=== PATIENT | female | born 1960 | race African-American/Black ===

== ENCOUNTER 2020-03-15 12:06 | Emergency (ER) | payer SELFPAY ==
--- NOTE | 2020-03-15 13:02 | EDM.PDOC ---
ED HPI GENERAL MEDICAL PROBLEM - General Chief Complaint: General Stated Complaint: CHEST X-RAY,COVID TEST Time Seen by Provider: 03/15/20 12:55 Source of Information: Reports: Patient History Limitations: Reports: No Limitations - History of Present Illness INITIAL COMMENTS - FREE TEXT/NARRATIVE: This is a 59-year-old female presents requesting a chest x-ray. 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 She was brushing her teeth today and noted some tinge of blood in the toothpaste and spit. This somehow was reported to her counter supervisor who suggested that she needs a chest x- ray and a COVID-19 swab. Covid testing is being done through her organization, however she is here now for a chest x-ray. She has no pulmonary symptoms or pain. - Related Data Allergies Allergy/AdvReac Type Severity Reaction Status Date / Time No Known Allergies Allergy Verified 03/15/20 12:58 Home Meds: Home Meds NK [No Known Home Meds] 03/15/20 [History] ED ROS GENERAL - Review of Systems Review Of Systems: See Below Constitutional: Reports: No Symptoms HEENT: Reports: No Symptoms Respiratory: Reports: No Symptoms Cardiovascular: Reports: No Symptoms Endocrine: Reports: No Symptoms GI/Abdominal: Reports: No Symptoms : Reports: No Symptoms Musculoskeletal: Reports: No Symptoms Skin: Reports: No Symptoms Neurological: Reports: No Symptoms Psychiatric: Reports: No Symptoms Hematologic/Lymphatic: Reports: No Symptoms Immunologic: Reports: No Symptoms ED EXAM, GENERAL - Physical Exam Exam: See Below Exam Limited By: No Limitations General Appearance: Alert, No Apparent Distress Nose: Normal Inspection Throat/Mouth: Normal Inspection Head: Atraumatic, Normocephalic Neck: Normal Inspection Respiratory/Chest: No Respiratory Distress Cardiovascular: Regular Rate, Rhythm GI/Abdominal: No Distention (Female) Exam: Normal External Exam Rectal (Female) Exam: Normal Exam Back Exam: Normal Inspection Extremities: Normal Inspection Neurological: Alert, Oriented Psychiatric: Normal Affect, Normal Mood Skin Exam: Warm, Dry Course - Vital Signs Last Recorded V/S: Last Vital Signs Temp 35.9 C L 03/15/20 13:01 Pulse 78 03/15/20 13:01 Resp 16 03/15/20 13:01 BP 135/97 H 03/15/20 13:01 Pulse Ox 96 03/15/20 13:01 - Re-Assessments/Exams Free Text/Narrative Re-Assessment/Exam: 59-year-old presents with some blood in the toothpaste after she was brushing her teeth. 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 This was performed is without acute process. She was discharged. She has no medical concerns. No respiratory symptoms. 03/15/20 13:39 Departure - Departure Time of Disposition: 01:01 Disposition: Home, Self-Care 01 Clinical Impression: Blood in sputum - Discharge Information *PRESCRIPTION DRUG MONITORING PROGRAM REVIEWED*: No *COPY OF PRESCRIPTION DRUG MONITORING REPORT IN PATIENT SHARA: No Instructions: Hemoptysis, [id number] Referrals: PCP,None [Primary Care Provider] - Forms: ED Department Discharge Additional Instructions: You have an unremarkable chest xray Sepsis Event Note (ED) - Focused Exam Vital Signs: Vital Signs Temp Pulse Resp BP Pulse Ox 03/15/20 13:01 35.9 C L 78 16 135/97 H 96 03/15/20 12:22 35.9 C L 78 16 135/97 H 96
--- NOTE | 2020-03-15 13:19 | CR ---
CHEST: Portable 05/15/2019 at 12:50 PM CLINICAL HISTORY:Hemoptysis COMPARISON:None FINDINGS: The heart size, pulmonary vascularity and hilar structures are normal. No infiltrate effusion or pneumothorax is seen. There is some scattered tiny nodular foci in both upper lung lazcano. These are most likely chronic. There are atherosclerotic changes in the aorta. IMPRESSION: No acute cardiopulmonary process.
== END 2020-03-15 13:10 | disposition home or self-care (01) ==
LOC: JP.ED 12:06
DX: R04.2 Hemoptysis (principal)
CPT/HCPCS: 71045; 71045-26; 99283-25